=== PATIENT | female | born 1975 | race Caucasian/White ===

== ENCOUNTER 2017-03-29 06:13 | Emergency (ER) | payer MEDICAID ==
[~2017-03-29] VITALS: Ht 167.6 cm; Wt 98.4 kg
[~2017-03-29 06:13] MED LIST: METH500T3 PO; OMEP20TA93 PO; TOPI25TA7 PO
[2017-03-29 06:14] VITALS: BP 122/86; PULSE 106; RESP 18; TEMP 97.9
[2017-03-29 06:25] VITALS: BP 122/86; PULSE 106; RESP 18; TEMP 97.9
[2017-03-29] MEDS ORDERED: ASPI-516 CHEW (06:43)
[2017-03-29] MEDS ORDERED: OMEGCAP PO (06:43)
[2017-03-29] MEDS ORDERED: SODIUM CHLOR 0.9% 1000 ML INJ 1,000 ML IV SCH (07:03)
--- NOTE | 2017-03-29 07:13 | PD ---
HPI Chief Complaint: GI Complaint Time Seen by Provider: 06:58 Travel History International Travel<30 days: No Contact w/Intl Traveler<30days: No Traveled to known affect area: No History of Present Illness HPI Patient is a 41 year old female who comes in complaining of nausea, vomiting, and diarrhea. She says it started around 11PM last night. She says she had ribs for dinner that they made at home. Her daughter became sick with similar symptoms a few hours later. Her father ate the same food, but is not having any symptoms. She has pain all over her abdomen. She has had chills, but no fever. She has not been able to keep any food or liquids down. She has not taken anything for her symptoms. She says laying down makes her feel worse. PFSH Past Medical History Blood Disorders: Yes Diminished Hearing: No Deep Vein Thrombosis: Yes Endocrine: Yes (lupus anticoagulant, factor 5 lieden) GERD: Yes Immunizations Current: No Migraines: Yes Tetanus Vaccination: Unknown Influenza Vaccination: No ?: Not LMP: 03-26-17 Past Surgical History Surgical History: No Previous Surgery Social History Alcohol Use: Yes (SOCIALLY) Tobacco Use: No (QUIT 6 years ago) Substance Use: No Allergies-Medications (Allergen,Severity, Reaction): Coded Allergies: amoxicillin (Unverified Allergy, Severe, 03/29/17) penicillin G (Unverified Allergy, Severe, Anaphylaxis, 03/29/17) erythromycin base (Unverified Adverse Reaction, Severe, Anaphylaxis, 03/29) Reported Meds & Prescriptions Reported Meds & Active Scripts Active Omeprazole 20 Mg Tab 20 Mg PO DAILY Topiramate 25 Mg Tab 25 Mg PO BID Methocarbamol 500 Mg Tab 500 Mg PO TID Reported [place]-3 Fish Oil/Vitamin (Fish Oil-Cholecalciferol) 1,000-1,000 Mg Cap 1 Cap PO DAILY Aspirin 81 Mg Chew 81 Mg CHEW DAILY Review of Systems Except as stated in HPI: all other systems reviewed are Neg General / Constitutional: Positive: Chills, No: Fever HENT: No: Headaches, Lightheadedness Cardiovascular: No: Chest Pain or Discomfort Respiratory: No: Shortness of Breath Gastrointestinal: Positive: Nausea, Vomiting, Diarrhea Genitourinary: No: Dysuria Musculoskeletal: No: Myalgias, Edema Skin: No Rash, No Itching, No Change in Pigmentation Neurologic: No: Weakness, Dizziness Physical Exam Narrative GENERAL: Awake and alert, in no acute distress. SKIN: Focused skin assessment warm/dry. No signs of infection. HEAD: Atraumatic. Normocephalic. EYES: Pupils equal and round. No scleral icterus. ENT: Mucous membranes pink and moist. NECK: Trachea midline. No JVD. CARDIOVASCULAR: Regular rate and rhythm. No murmur appreciated. RESPIRATORY: No accessory muscle use. Clear to auscultation. Breath sounds equal bilaterally. GASTROINTESTINAL: Abdomen soft, nondistended. Mild diffuse tenderness to palpation. No rebound or guarding. MUSCULOSKELETAL: No obvious deformities. No clubbing. No cyanosis. No edema. NEUROLOGICAL: Awake and alert. No obvious cranial nerve deficits. Motor grossly within normal limits. Normal speech. PSYCHIATRIC: Appropriate mood and affect; insight and judgment normal. Data Data Last Documented VS Vital Signs Date Time Temp Pulse Resp B/P (MAP) Pulse Ox O2 Delivery O2 Flow Rate FiO2 03/29/17 07:15 16 97 Room Air 03/29/17 06:25 97.9 106 Orders Orders Complete Blood Count With Diff (03/29/17 07:03) Comprehensive Metabolic Panel (03/29/17 07:03) Urinalysis - C+S If Indicated (03/29/17 07:03) Iv Access Insert/Monitor (03/29/17 07:03) Ecg Monitoring (03/29/17 07:03) Oximetry (03/29/17 07:03) Ondansetron Inj (Zofran Inj) (03/29/17 07:15) Sodium Chlor 0.9% 1000 Ml Inj (Ns 1000 M (03/29/17 07:03) Sodium Chloride 0.9% Flush (Ns Flush) (03/29/17 07:15) Famotidine Inj (Pepcid Inj) (03/29/17 07:15) Ed Urine Pregnancytest Poc (03/29/17 07:03) Metoclopramide Inj (Reglan Inj) (03/29/17 08:30) Labs Laboratory Tests Test 03/29/17 07:11 03/29/17 07:15 Urine Color YELLOW Urine Turbidity CL Urine pH 7.0 Urine Specific [place] 1.020 Urine Protein NEG mg/dL Urine Glucose (UA) NEG mg/dL Urine Ketones NEG mg/dL Urine Occult Blood MOD Urine Nitrite NEG Urine Bilirubin NEG Urine Leukocyte Esterase NEG Urine RBC 20-24 /hpf Urine WBC 0-2 /hpf Urine Squamous Epithelial Cells > 8 /hpf Microscopic Urinalysis Comment CULT NOT INDICATED White Blood Count 14.9 TH/MM3 Red Blood Count 5.21 MIL/MM3 Hemoglobin 14.6 GM/DL Hematocrit 43.6 % Mean Corpuscular Volume 83.7 FL Mean Corpuscular Hemoglobin 28.0 PG Mean Corpuscular Hemoglobin Concent 33.5 % Red Cell Distribution Width 11.8 % Platelet Count 304 TH/MM3 Mean Platelet Volume 7.1 FL Neutrophils (%) (Auto) 92.6 % Lymphocytes (%) (Auto) 4.4 % Monocytes (%) (Auto) 1.8 % Eosinophils (%) (Auto) 0.1 % Basophils (%) (Auto) 1.1 % Neutrophils # (Auto) 13.7 TH/MM3 Lymphocytes # (Auto) 0.7 TH/MM3 Monocytes # (Auto) 0.3 TH/MM3 Eosinophils # (Auto) 0.0 TH/MM3 Basophils # (Auto) 0.2 TH/MM3 CBC Comment DIFF FINAL Differential Comment Blood Urea Nitrogen 22 MG/DL Creatinine 0.77 MG/DL Random Glucose 120 MG/DL Total Protein 8.0 GM/DL Albumin 3.9 GM/DL Calcium Level 8.7 MG/DL Alkaline Phosphatase 69 U/L Aspartate Amino Transf (AST/SGOT) 18 U/L Alanine Aminotransferase (ALT/SGPT) 23 U/L Total Bilirubin 0.5 MG/DL Sodium Level 138 MEQ/L Potassium Level 3.8 MEQ/L Chloride Level 103 MEQ/L Carbon Dioxide Level 27.0 MEQ/L Anion Gap 8 MEQ/L Estimat Glomerular Filtration Rate 83 ML/MIN [facility] Medical Decision Making Medical Screen Exam Complete: Yes Emergency Medical Condition: Yes Medical Record Reviewed: Yes Differential Diagnosis gastroenteritis vs electrolyte abnormalities vs colitis vs UTI Narrative Course Patient is a 41 year old female who comes in complaining of nausea, vomiting, diarrhea. Exam shows mild diffuse tenderness to palpation of the abdomen. IV established, labs sent. Labs show an elevated WBC count, which is expected from a gastroenteritis. Given IVF, zofran, Famotidine. She is still vomiting, given a dose of Reglan. Patient reports feeling better after Reglan. She is able to drink water without vomiting. She will be discharged with prescription for Zofran. Advised to drink plenty of fluids. Advised to eat a bland diet if feeling hungry. Advised to follow up with her doctor. Advised to return to the ED as needed for any worsening symptoms. Diagnosis Primary Impression: Gastroenteritis Patient Instructions: Acute Nausea and Vomiting (ED), General Instructions Additional Instructions: Drink plenty of fluids. If feeling hungry, eat bland foods. Take Zofran as needed for nausea. Follow up with your doctor. Return to the ED as needed for any worsening symptoms. Scripts Ondansetron Odt (Zofran Odt) 4 Mg Tab 4 MG SL Q6HR Y for Nausea/Vomiting, #10 TAB 0 Refills Prov: Maria L Kaplan MD 03/29/17 Disposition: 01 DISCHARGE HOME Condition: Stable Maria L Kaplan MD Mar 29, 2017 07:13
[2017-03-29 07:15] VITALS: RESP 16; O2SAT 97
[2017-03-29] MEDS ORDERED: SODIUM CHLORIDE 0.9% FLUSH 10 ML FLUSH IV FLUSH PRN (07:15)
[2017-03-29] MEDS ORDERED: FAMOTIDINE 20 MG/2 ML VIAL IV PUSH ONE (07:15)
[2017-03-29] MEDS ORDERED: ONDANSETRON HCL 4 MG/2 ML VIAL IVP ONE (07:15)
[2017-03-29 07:24] LABS: BILIRUBIN, URINE NEG (NEG); BLOOD, URINE MOD (NEG); GLUCOSE,URINE NEG (NEG); KETONE, URINE NEG (NEG); NITRITE,URINE NEG (NEG); URINE LEUKOCYTE ESTERASE NEG (NEG)
[2017-03-29 07:30] LABS: AUTOMATED NEUTROPHIL # 13.7 TH/MM3 (1.8-7.7); BASOPHIL # 0.2 TH/MM3 (0-0.2); BASOPHIL % 1.1 % (0.0-2.0); EOSINOPHIL % 0.1 % (0.0-4.0); HEMATOCRIT 43.6 % (35.0-46.0); HEMOGLOBIN 14.6 GM/DL (11.6-15.3); LYMPH % 4.4 % (9.0-44.0); LYMPHOCYTE # 0.7 TH/MM3 (1.0-4.8); MEAN CELL VOLUME 83.7 FL (80.0-100.0); MEAN CORPUSCULAR HGB CONC 33.5 % (32.0-36.0); MEAN PLATELET VOLUME 7.1 FL (7.0-11.0); MONO % 1.8 % (0.0-8.0); MONOCYTE # 0.3 TH/MM3 (0-0.9); NEUT % 92.6 % (16.0-70.0); PLATELET COUNT 304 TH/MM3 (150-450); RED BLOOD COUNT 5.21 MIL/MM3 (4.00-5.30); RED CELL DISTRIBUTION WIDTH 11.8 % (11.6-17.2); WHITE BLOOD COUNT 14.9 TH/MM3 (4.0-11.0)
[2017-03-29 07:35] LABS: CHLORIDE 103 MEQ/L (98-107); SODIUM (NA) 138 MEQ/L (136-145)
[2017-03-29 07:38] LABS: CALCIUM 8.7 MG/DL (8.5-10.1)
[2017-03-29 07:39] LABS: ALBUMIN 3.9 GM/DL (3.4-5.0); BLOOD UREA NITROGEN 22 MG/DL (7-18); GLUCOSE,RANDOM 120 MG/DL (74-106)
[2017-03-29 07:42] LABS: ALT (GPT) 23 U/L (10-53); AST (GOT) 18 U/L (15-37); CREATININE 0.77 MG/DL (0.50-1.00); GLOMERULAR FILTRATION RATE 83 ML/MIN (>89)
[2017-03-29 07:43] LABS: URINE COLOR YELLOW (YELLW/STRAW)
[2017-03-29 07:44] LABS: SQUAMOUS EPITHELIAL CELL URINE > 8 /hpf (0-5); WBC, URINE 0-2 /hpf (0-5)
[2017-03-29 07:44] LABS: TOTAL BILIRUBIN ADULT 0.5 MG/DL (0.2-1.0)
[2017-03-29 07:45] LABS: ALKALINE PHOSPHATASE 69 U/L (45-117)
[2017-03-29] MEDS ORDERED: METOCLOPRAMIDE INJ 10 MG in SODIUM CHLORIDE 0.9% INJ 50 ML IV ONE (08:15)
[2017-03-29] MEDS ORDERED: SODIUM CHLORIDE 0.9% IV ONE (08:30)
[2017-03-29] MEDS ORDERED: METOCLOPRAMIDE IV ONE (08:30)
[2017-03-29] MEDS ORDERED: ZOFR4TAB3 SL (09:15)
[2017-03-29 09:17] VITALS: BP 120/79; PULSE 92; RESP 16; O2SAT 98
[2017-03-29 09:39] VITALS: BP 122/73
== END 2017-03-29 09:42 | disposition home or self-care (01) ==
LOC: PHED 06:13
DX: K52.9 Noninfective gastroenteritis and colitis, unspecified (principal); K21.9 Gastro-esophageal reflux disease without esophagitis; D68.51 Activated protein C resistance; Z79.899 Other long term (current) drug therapy; Z79.82 Long term (current) use of aspirin; Z88.0 Allergy status to penicillin; Z88.1 Allergy status to other antibiotic agents; Z86.718 Personal history of other venous thrombosis and embolism
CPT/HCPCS: 80053; 81001; 84703; 85025; 96361; 96374; 96375; 99284; J2405; J2765; J7030

== ENCOUNTER 2017-07-19 18:30 | Emergency (ER) | payer MEDICAID ==
[~2017-07-19] VITALS: Ht 152.4 cm; Wt 105.5 kg
[~2017-07-19 18:30] MED LIST changes: +ASPI-516 CHEW; +OMEGCAP PO; +ZOFR4TAB3 SL
[2017-07-19 18:41] VITALS: BP 172/117; PULSE 90; RESP 18; TEMP 99.1
[2017-07-19] MEDS ORDERED: SODIUM CHLOR 0.9% 1000 ML INJ 1,000 ML IV SCH (19:14)
[2017-07-19] MEDS ORDERED: FAMOTIDINE 20 MG/2 ML VIAL IV PUSH ONE (19:15)
[2017-07-19] MEDS ORDERED: SODIUM CHLORIDE 0.9% FLUSH 10 ML FLUSH IV FLUSH PRN (19:15)
[2017-07-19] MEDS ORDERED: ONDANSETRON HCL 4 MG/2 ML VIAL IVP ONE (19:15)
--- NOTE | 2017-07-19 19:19 | PD ---
HPI Chief Complaint: GI Complaint Time Seen by Provider: 19:04 Travel History International Travel<30 days: No Contact w/Intl Traveler<30days: No Traveled to known affect area: No History of Present Illness HPI The patient is a 41-year-old female who presents to the emergency department for 2 days of swollen glands, sore throat, nausea, vomiting, and myalgias. The patient's symptoms started 2 days ago with swollen glands in the neck. She then developed a sore throat followed by nausea and vomiting. She also complains of generalized body aches. She does note fevers at home, none higher than 102 Fahrenheit. She denies any abdominal pain, diarrhea, dysuria, frequency, or urgency. She did not receive an influenza vaccination this year. She denies any sick contacts at home. Symptoms are moderate. The patient denies , denies current sexual activity. PFSH Past Medical History Blood Disorders: Yes Diminished Hearing: No Deep Vein Thrombosis: Yes Endocrine: Yes (lupus anticoagulant, factor 5 lieden) GERD: Yes Immunizations Current: No Migraines: Yes ?: Not LMP: ABOUT 1 MO AGO Social History Alcohol Use: Yes (SOCIALLY) Tobacco Use: No (QUIT 6 years ago) Substance Use: No Allergies-Medications (Allergen,Severity, Reaction): Coded Allergies: amoxicillin (Unverified Allergy, Severe, 07/19/17) penicillin G (Unverified Allergy, Severe, Anaphylaxis, 07/19/17) erythromycin base (Unverified Adverse Reaction, Severe, Anaphylaxis, ) Reported Meds & Prescriptions Reported Meds & Active Scripts Active Omeprazole 20 Mg Tab 20 Mg PO DAILY Reported [place]-3 Fish Oil/Vitamin (Fish Oil-Cholecalciferol) 1,000-1,000 Mg Cap 1 Cap PO DAILY Aspirin 81 Mg Chew 81 Mg CHEW DAILY Review of Systems Except as stated in HPI: all other systems reviewed are Neg General / Constitutional: Positive: Fever HENT: Positive: Sore Throat, Other (Swollen glands in the front of the neck) Cardiovascular: No: Chest Pain or Discomfort Respiratory: No: Cough, Shortness of Breath Gastrointestinal: Positive: Nausea, Vomiting, No: Diarrhea, Abdominal Pain Genitourinary: No: Urgency, Frequency, Dysuria Musculoskeletal: Positive: Myalgias Skin: No Rash Physical Exam Narrative GENERAL: Awake, alert, pleasant 41-year-old female who appears her stated age and is in no acute respiratory distress. SKIN: Focused skin assessment warm/dry. HEAD: Atraumatic. Normocephalic. EYES: Pupils equal and round. No scleral icterus. No injection or drainage. ENT: No nasal bleeding or discharge. Oropharynx reveals cobblestoning but no exudate. NECK: Trachea midline. No JVD. Shotty anterior cervical lymphadenopathy. CARDIOVASCULAR: Regular rate and rhythm. No murmur appreciated. RESPIRATORY: No accessory muscle use. Clear to auscultation. Breath sounds equal bilaterally. GASTROINTESTINAL: Abdomen soft, non-tender, nondistended. No epigastric tenderness. Negative Lawler's. Negative McBurney's. No guarding or rigidity. MUSCULOSKELETAL: No obvious deformities. No clubbing. No cyanosis. No edema. NEUROLOGICAL: Awake and alert. No obvious cranial nerve deficits. Motor grossly within normal limits. Normal speech. PSYCHIATRIC: Appropriate mood and affect; insight and judgment normal. Data Data Last Documented VS Vital Signs Date Time Temp Pulse Resp B/P (MAP) Pulse Ox O2 Delivery O2 Flow Rate FiO2 07/19/17 20:03 20 07/19/17 19:56 82 119/76 (90) 98 07/19/17 18:41 99.1 Orders Orders Complete Blood Count With Diff (07/19/17 19:14) Comprehensive Metabolic Panel (07/19/17 19:14) Lipase (07/19/17 19:14) Urinalysis - C+S If Indicated (07/19/17 19:14) Iv Access Insert/Monitor (07/19/17 19:14) Ecg Monitoring (07/19/17 19:14) Oximetry (07/19/17 19:14) Ondansetron Inj (Zofran Inj) (07/19/17 19:15) Sodium Chlor 0.9% 1000 Ml Inj (Ns 1000 M (07/19/17 19:14) Sodium Chloride 0.9% Flush (Ns Flush) (07/19/17 19:15) Famotidine Inj (Pepcid Inj) (07/19/17 19:15) Influenzae A/B Antigen (07/19/17 19:14) Labs Laboratory Tests Test 07/19/17 19:30 07/19/17 19:40 Urine Color YELLOW Urine Turbidity CLEAR Urine pH 7.0 Urine Specific [place] 1.020 Urine Protein TRACE mg/dL Urine Glucose (UA) NEG mg/dL Urine Ketones NEG mg/dL Urine Occult Blood MOD Urine Nitrite NEG Urine Bilirubin NEG Urine Urobilinogen 0.2 MG/DL Urine Leukocyte Esterase NEG Urine RBC 10-14 /hpf Urine WBC 0-2 /hpf Urine Squamous Epithelial Cells 0-5 /hpf Microscopic Urinalysis Comment CULT NOT INDICATED White Blood Count 10.9 TH/MM3 Red Blood Count 4.84 MIL/MM3 Hemoglobin 13.3 GM/DL Hematocrit 39.7 % Mean Corpuscular Volume 82.1 FL Mean Corpuscular Hemoglobin 27.5 PG Mean Corpuscular Hemoglobin Concent 33.5 % Red Cell Distribution Width 13.0 % Platelet Count 274 TH/MM3 Mean Platelet Volume 7.1 FL Neutrophils (%) (Auto) 77.8 % Lymphocytes (%) (Auto) 16.9 % Monocytes (%) (Auto) 4.4 % Eosinophils (%) (Auto) 0.5 % Basophils (%) (Auto) 0.4 % Neutrophils # (Auto) 8.5 TH/MM3 Lymphocytes # (Auto) 1.8 TH/MM3 Monocytes # (Auto) 0.5 TH/MM3 Eosinophils # (Auto) 0.1 TH/MM3 Basophils # (Auto) 0.0 TH/MM3 CBC Comment DIFF FINAL Differential Comment Blood Urea Nitrogen 12 MG/DL Creatinine 0.61 MG/DL Random Glucose 83 MG/DL Total Protein 7.6 GM/DL Albumin 3.6 GM/DL Calcium Level 8.9 MG/DL Alkaline Phosphatase 61 U/L Aspartate Amino Transf (AST/SGOT) 10 U/L Alanine Aminotransferase (ALT/SGPT) 18 U/L Total Bilirubin LESS THAN 0.1 MG/DL Sodium Level 138 MEQ/L Potassium Level 3.8 MEQ/L Chloride Level 106 MEQ/L Carbon Dioxide Level 26.0 MEQ/L Anion Gap 6 MEQ/L Estimat Glomerular Filtration Rate 109 ML/MIN Lipase 152 U/L MDM Medical Decision Making Medical Screen Exam Complete: Yes Emergency Medical Condition: Yes Medical Record Reviewed: Yes Interpretation(s) Laboratory Tests Test 07/19/17 19:30 07/19/17 19:40 Urine Color YELLOW Urine Turbidity CLEAR Urine pH 7.0 Urine Specific [place] 1.020 Urine Protein TRACE mg/dL Urine Glucose (UA) NEG mg/dL Urine Ketones NEG mg/dL Urine Occult Blood MOD Urine Nitrite NEG Urine Bilirubin NEG Urine Urobilinogen 0.2 MG/DL Urine Leukocyte Esterase NEG Urine RBC 10-14 /hpf Urine WBC 0-2 /hpf Urine Squamous Epithelial Cells 0-5 /hpf Microscopic Urinalysis Comment CULT NOT INDICATED White Blood Count 10.9 TH/MM3 Red Blood Count 4.84 MIL/MM3 Hemoglobin 13.3 GM/DL Hematocrit 39.7 % Mean Corpuscular Volume 82.1 FL Mean Corpuscular Hemoglobin 27.5 PG Mean Corpuscular Hemoglobin Concent 33.5 % Red Cell Distribution Width 13.0 % Platelet Count 274 TH/MM3 Mean Platelet Volume 7.1 FL Neutrophils (%) (Auto) 77.8 % Lymphocytes (%) (Auto) 16.9 % Monocytes (%) (Auto) 4.4 % Eosinophils (%) (Auto) 0.5 % Basophils (%) (Auto) 0.4 % Neutrophils # (Auto) 8.5 TH/MM3 Lymphocytes # (Auto) 1.8 TH/MM3 Monocytes # (Auto) 0.5 TH/MM3 Eosinophils # (Auto) 0.1 TH/MM3 Basophils # (Auto) 0.0 TH/MM3 CBC Comment DIFF FINAL Differential Comment Blood Urea Nitrogen 12 MG/DL Creatinine 0.61 MG/DL Random Glucose 83 MG/DL Total Protein 7.6 GM/DL Albumin 3.6 GM/DL Calcium Level 8.9 MG/DL Alkaline Phosphatase 61 U/L Aspartate Amino Transf (AST/SGOT) 10 U/L Alanine Aminotransferase (ALT/SGPT) 18 U/L Total Bilirubin LESS THAN 0.1 MG/DL Sodium Level 138 MEQ/L Potassium Level 3.8 MEQ/L Chloride Level 106 MEQ/L Carbon Dioxide Level 26.0 MEQ/L Anion Gap 6 MEQ/L Estimat Glomerular Filtration Rate 109 ML/MIN Lipase 152 U/L Differential Diagnosis Differential diagnosis includes influenza, gastritis, gastroenteritis, viral syndrome, pancreatitis, peptic ulcer disease, acute renal failure, dehydration, electrolyte abnormality. Narrative Course IV was established, labs were drawn and sent, and the patient was placed on cardiac telemetry monitoring and continuous pulse oximetry monitoring. Influenza screen and UA were sent to lab. The patient was administered Zofran, Pepcid, and IV fluids. CBC and CMP unremarkable. Lipase is negative. UA reveals RBCs, otherwise unremarkable. The patient was reevaluated at 8:15 PM. The patient had no further vomiting. Therefore, she was offered Gatorade, lore nate, or ice chips. The patient chose ice chips, she was then monitored for another 20-30 minutes. Diagnosis Primary Impression: Nausea & vomiting Qualified Codes: R11.2 - Nausea with vomiting, unspecified Patient Instructions: General Instructions Additional Instructions: Clear liquid diet and advance as tolerated. Work excuse for 2 days. Zofran as needed. Return if symptoms worsen or progress. Please provide the patient a copy of her labs at discharge. Med/Other Pt SpecificInfo: Prescription(s) given Scripts Ondansetron Odt (Zofran Odt) 4 Mg Tab 4 MG SL Q6HR Y for Nausea/Vomiting, #10 TAB 0 Refills Prov: Venancio Hawkins MD 07/19/17 Disposition: 01 DISCHARGE HOME Condition: Stable Venancio Hawkins MD Jul 19, 2017 19:19
[2017-07-19 19:41] LABS: BILIRUBIN, URINE NEG (NEG); BLOOD, URINE MOD (NEG); GLUCOSE,URINE NEG (NEG); KETONE, URINE NEG (NEG); NITRITE,URINE NEG (NEG); URINE COLOR YELLOW (YELLW/STRAW); URINE LEUKOCYTE ESTERASE NEG (NEG)
[2017-07-19 19:47] LABS: WBC, URINE 0-2 /hpf (0-5)
[2017-07-19 19:48] LABS: SQUAMOUS EPITHELIAL CELL URINE 0-5 /hpf (0-5)
[2017-07-19 19:56] VITALS: BP 119/76; PULSE 82; RESP 20; O2SAT 98
[2017-07-19 20:01] LABS: CHLORIDE 106 MEQ/L (98-107); SODIUM (NA) 138 MEQ/L (136-145)
[2017-07-19 20:04] LABS: ALBUMIN 3.6 GM/DL (3.4-5.0); CALCIUM 8.9 MG/DL (8.5-10.1)
[2017-07-19 20:05] LABS: AUTOMATED NEUTROPHIL # 8.5 TH/MM3 (1.8-7.7); BASOPHIL % 0.4 % (0.0-2.0); BLOOD UREA NITROGEN 12 MG/DL (7-18); EOSINOPHIL # 0.1 TH/MM3 (0-0.4); EOSINOPHIL % 0.5 % (0.0-4.0); GLUCOSE,RANDOM 83 MG/DL (74-106); HEMATOCRIT 39.7 % (35.0-46.0); HEMOGLOBIN 13.3 GM/DL (11.6-15.3); LYMPH % 16.9 % (9.0-44.0); LYMPHOCYTE # 1.8 TH/MM3 (1.0-4.8); MEAN CELL VOLUME 82.1 FL (80.0-100.0); MEAN CORPUSCULAR HEMOGLOBIN 27.5 PG (27.0-34.0); MEAN CORPUSCULAR HGB CONC 33.5 % (32.0-36.0); MEAN PLATELET VOLUME 7.1 FL (7.0-11.0); MONO % 4.4 % (0.0-8.0); MONOCYTE # 0.5 TH/MM3 (0-0.9); NEUT % 77.8 % (16.0-70.0); PLATELET COUNT 274 TH/MM3 (150-450); RED BLOOD COUNT 4.84 MIL/MM3 (4.00-5.30); WHITE BLOOD COUNT 10.9 TH/MM3 (4.0-11.0)
[2017-07-19 20:07] LABS: ALT (GPT) 18 U/L (10-53); AST (GOT) 10 U/L (15-37); CREATININE 0.61 MG/DL (0.50-1.00); GLOMERULAR FILTRATION RATE 109 ML/MIN (>89)
[2017-07-19 20:09] LABS: TOTAL BILIRUBIN ADULT LESS THAN 0.1 MG/DL (0.2-1.0); TOTAL PROTEIN 7.6 GM/DL (6.4-8.2)
[2017-07-19 20:10] LABS: ALKALINE PHOSPHATASE 61 U/L (45-117)
[2017-07-19] MEDS ORDERED: ZOFR4TAB3 SL (20:19)
[2017-07-19 21:12] VITALS: BP 167/98
== END 2017-07-19 21:19 | disposition home or self-care (01) ==
LOC: PHED 18:30
DX: R11.2 Nausea with vomiting, unspecified (principal); J02.9 Acute pharyngitis, unspecified; M79.1 Myalgia; K21.9 Gastro-esophageal reflux disease without esophagitis; Z79.82 Long term (current) use of aspirin; Z79.899 Other long term (current) drug therapy; Z88.0 Allergy status to penicillin; Z87.891 Personal history of nicotine dependence; Z86.718 Personal history of other venous thrombosis and embolism
CPT/HCPCS: 80053; 81001; 83690; 85025; 87804; 96374; 96375; 99284; J2405; J7030